=== PATIENT | male | born 1980 | race Caucasian/White ===

== ENCOUNTER 2017-02-25 16:01 | Emergency (ER) | payer MEDICAID, OTHER ==
[~2017-02-25] VITALS: Wt 90.9 kg
[2017-02-25] MEDS ORDERED: KETOROLAC 30 MG INJ IV STA (17:12)
[2017-02-25] MEDS ORDERED: ONDANSETRON 4 MG INJ IV STA (17:12)
[2017-02-25] MEDS ORDERED: morphine 4 MG/ML VIAL IV STA (17:12)
[2017-02-25] MEDS ORDERED: SOD CHLORIDE 0.9% 1,000 ML IV STA (17:12)
--- NOTE | 2017-02-25 18:36 | RADRPT ---
PROCEDURE: CT Abdomen and Pelvis without contrast. CLINICAL INDICATION: Abdominal and pelvic pain. Left lower quadrant pain. TECHNIQUE: CT scan of the abdomen and pelvis without contrast was performed. Coronal and sagittal reformatted images were obtained from the axial source images. Images were reviewed on a [employer] PACS workstation. Total exam DLP is 949.49 mGy-cm. CTDIvol is 16.41 mGy. One or more of the f ollowing dose reduction techniques were used: Automated exposure control, adjustment of the mA and/o r kV according to patient size, use of iterative reconstruction technique. COMPARISON: None. FINDINGS: The lung bases are normal. There is no pleural effusion. The liver is normal in size and diffusely decreased in attenuation. There is no focal hepatic lesio n. The gallbladder and bile ducts are normal. The spleen is normal in size. There is no focal splenic lesion. Both adrenals are normal with no enlargement or mass. The pancreas is unremarkable with no mass or evidence of pancreatitis. There is no renal mass or hydronephrosis. There is no renal calculus or ureteral calculus. The abdominal aorta is not dilated. There is no retroperitoneal lymphadenopathy or mass. There is no pelvic lymphadenopathy or mass. The bladder and distal ureters are normal. The periappendiceal region is unremarkable with no evidence of appendicitis. The appendix is well se en and appears normal. The bowel and mesentery are normal. There is no free fluid or free gas. The osseous structures are unremarkable with no fracture or lytic lesion. IMPRESSION: 1. Fatty metamorphosis of the liver. 2. No evidence of diverticulitis. 3. Normal appendix. 4. No urinary tract calculus or hydronephrosis. 5. Otherwise unremarkable CT scan of the abdomen and pelvis. RPTAT: QQ .Evens Jean-Baptiste MD, Date Time Electronically viewed and signed by .Evens Jean-Baptiste MD, MD on 02/25/2017 18:35 .R/
[2017-02-25] MEDS ORDERED: DOCU-144 PO (18:48)
[2017-02-25] MEDS ORDERED: ACET325T33 PO (18:48)
[2017-02-25] MEDS ORDERED: POLY17PO6 PO (18:48)
--- NOTE | 2017-02-25 19:05 | ERD ---
ER Documentation Chief Complaint Chief Complaint LLQ PAIN, N/V, CHILLS HPI 36 year old male presents with moderate lower quadrant abdominal pain past 2 days. Patient states that he has difficulty going to the restroom and has chills, denies nausea, vomiting, diarrhea. Patient denies taking any medications for this. ROS All systems reviewed and are negative except as per history of present illness. Medications Home Meds Active Scripts Acetaminophen* (Tylenol*) 325 Mg Tablet, 2 TAB PO Q6 Y for PAIN AND OR ELEVATED TEMP, #30 TAB Prov:CORNEILA WHALEY PA-C 02/25/17 Docusate Sodium* (Colace*) 100 Mg Capsule, 100 MG PO TID, #30 CAP Prov:CORNELIA WHALEY PA-C 02/25/17 Polyethylene Glycol* (Miralax*) 17 Gm Powd.pack, 17 GM PO DAILY Y for CONSTIPATION, #7 Prov:CORNELIA WHALEY PA-C 02/25/17 PMhx/Soc Medical and Surgical Hx: pt denies Medical Hx, pt denies Surgical Hx Hx Alcohol Use: No Hx Substance Use: No Hx Tobacco Use: No Smoking Status: Never smoker Physical Exam Vitals Vital Signs Date Time Temp Pulse Resp B/P Pulse Ox O2 Delivery O2 Flow Rate FiO2 02/25/17 16:07 97.3 63 20 119/67 99 Physical Exam GENERAL: well-developed/well-nourished, in no apparent distress, non-toxic appearing HENT: NC/AT, moist mucous membranes EYES: Conjunctiva normal NECK: Supple, no lymphadenopathy PULM: CTA bilaterally, no rales, rhonchi, or wheezing heard CV: Normal S1S2, RRR, good capillary refill GI: Soft, non-distended, tender to palpation left lower quadrant Normal bowel sounds, no masses or organomegaly felt on exam No gross peritonitis, no bruits Negative Rovsing, negative Mariano, negative McBurney's point, Negative CVAT BACK: No masses EXT: No clubbing, cyanosis, or edema NEURO: Alert and Orientated SKIN: Intact, normal turgor PSYCH: Normal mood and mentation Result Diagram: 02/25/17 1745 02/25/17 1745 Results 24 hrs Laboratory Tests Test 02/25/17 17:45 White Blood Count 6.410^3/ul Red Blood Count 5.7310^6/ul Hemoglobin 16.7g/dl Hematocrit 47.4% Mean Corpuscular Volume 82.7fl Mean Corpuscular Hemoglobin 29.1pg Mean Corpuscular Hemoglobin Concent 35.2g/dl Red Cell Distribution Width 11.9% Platelet Count 01713^3/UL Mean Platelet Volume 11.7fl Neutrophils % 54.6% Lymphocytes % 29.6% Monocytes % 11.1% Eosinophils % 4.0% Basophils % 0.5% Nucleated Red Blood Cells % 0.0/100WBC Neutrophils # 3.510^3/ul Lymphocytes # 1.910^3/ul Monocytes # 0.710^3/ul Eosinophils # 0.310^3/ul Basophils # 0.010^3/ul Nucleated Red Blood Cells # 0.010^3/ul Urine Color YELLOW Urine Clarity CLEAR Urine pH 5.0 Urine Specific Reading 1.016 Urine Ketones NEGATIVEmg/dL Urine Nitrite NEGATIVEmg/dL Urine Bilirubin NEGATIVEmg/dL Urine Urobilinogen 1+mg/dL Urine Leukocyte Esterase NEGATIVELeu/ul Urine Hemoglobin NEGATIVEmg/dL Urine Glucose NEGATIVEmg/dL Urine Total Protein NEGATIVEmg/dl Sodium Level 141mmol/L Potassium Level 3.9mmol/L Chloride Level 103mmol/L Carbon Dioxide Level 25mmol/L Anion Gap 17 Blood Urea Nitrogen 6mg/dl Creatinine 0.77mg/dl Glucose Level 91mg/dl Calcium Level 8.9mg/dl Total Bilirubin 0.9mg/dl Direct Bilirubin 0.00mg/dl Indirect Bilirubin 0.9mg/dl Aspartate Amino Transf (AST/SGOT) 62IU/L Alanine Aminotransferase (ALT/SGPT) 148IU/L Alkaline Phosphatase 73IU/L Total Protein 8.0g/dl Albumin 4.8g/dl Globulin 3.20g/dl Albumin/Globulin Ratio 1.50 Lipase 118U/L Current Medications Medications (Trade) Dose Ordered Sig/Татьяна Route PRN Reason Start Time Stop Time Status Last Admin Dose Admin Sodium Chloride (NS) 1,000 ml @ 1,000 mls/hr Q1H STAT IV 02/25/17 17:12 02/25/17 18:11 DC 02/25/17 17:58 Morphine Sulfate (morphine) 4 mg ONCE STAT IV 02/25/17 17:12 02/25/17 17:13 DC 02/25/17 17:52 Ondansetron HCl (Zofran Inj) 4 mg ONCE STAT IV 02/25/17 17:12 02/25/17 17:13 DC 02/25/17 17:52 Ketorolac Tromethamine (Toradol) 30 mg ONCE STAT IV 02/25/17 17:12 02/25/17 17:13 DC 02/25/17 17:52 Procedures/MDM 36-year-old male presenting to the emergency department complaining of left lower quadrant abdominal pain and difficulty going to the restroom. Patient has stable vital signs stable to be discharged home to follow with primary care physician. Patient was found to have a fatty liver on CT, no evidence of acute abdomen. No evidence of diverticulitis, pancreatitis appendicitis. He was given prescription for MiraLAX, Colace and Tylenol. Discussed to continue to follow-up with primary care physician. CT abd and pelvis without contrast 1. Fatty metamorphosis of the liver. 2. No evidence of diverticulitis. 3. Normal appendix. 4. No urinary tract calculus or hydronephrosis. 5. Otherwise unremarkable CT scan of the abdomen and pelvis. Departure Diagnosis: Primary Impression: Constipation Additional Impression: Fatty liver Condition: Stable Patient Instructions: Non-Alcoholic Fatty Liver Disease (NAFLD), Constipation ( Adult) Additional Instructions: Visite a [place] julia ledbetter para un EXAMEN.Regrese a estas instalaciones si no se mejora estela esperbamos o estela le dijimos. [place] toda la medicina bg y estela se le indic. Regrese a estas instalaciones si no se mejora estela esperbamos o estela le dijimos. CORNELIA WHALEY PA-C Feb 25, 2017 19:05
== END 2017-02-25 19:17 | disposition home or self-care (01) ==
LOC: FTE 16:01
DX: K59.00 Constipation, unspecified (principal); K76.0 Fatty (change of) liver, not elsewhere classified
CPT/HCPCS: 36415; 74176; 80053; 81003; 83690; 85025; 96374; 96375; J1885; J2270; J2405; J7030; Z7502